=== PATIENT | male | born 1945 | race Caucasian/White ===

== ENCOUNTER → 2017-03-20 | Outpatient (CLI) | payer MEDICARE ==
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
== END | disposition home or self-care (01) ==
LOC: RADCTMAIN 07:52
PROVIDERS: ATTEND Family Medicine
DX: M99.71 Connective tissue and disc stenosis of intervertebral foramina of cervical region (principal); M47.812 Spondylosis without myelopathy or radiculopathy, cervical region; M47.814 Spondylosis without myelopathy or radiculopathy, thoracic region; M81.0 Age-related osteoporosis without current pathological fracture; M43.8X4 Other specified deforming dorsopathies, thoracic region
CPT/HCPCS: 72125; 72128

== ENCOUNTER → 2017-05-13 | Outpatient (CLI) | payer MEDICARE ==
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
== END | disposition home or self-care (01) ==
LOC: RADBDWWP 09:05
PROVIDERS: ATTEND Family Medicine
DX: M85.80 Other specified disorders of bone density and structure, unspecified site (principal); T07.XXXA Unspecified multiple injuries, initial encounter
CPT/HCPCS: 77080

== ENCOUNTER → 2021-10-06 | Outpatient (CLI) | payer MEDICARE ==
--- NOTE | 2021-10-08 14:35 | CT ---
EXAMINATION TYPE: CT pelvis wo con DATE OF EXAM: 10/06/2021 COMPARISON: HISTORY: 76-year-old male N4 0.1, Benign prostatic hyperplasia TECHNIQUE: Contiguous axial scanning of the pelvis without IV contrast. Coronal and sagittal reconstr uctions performed. CT DLP: 395 mGycm Automated exposure control for dose reduction was used. FINDINGS: Small fatty umbilical hernia measuring 2.0 cm wide. Mild prostatic calcifications visualized infraren al abdominal aorta and common iliac arteries. Ectatic distal left common iliac artery up to 1.9 cm. Partially visualized 4.9 cm cyst lower pole left kidney. The breathing motion artifact. Redundant mid to distal sigmoid colon. No retroperitoneal or pelvic lymphadenopathy is identified. Numerous pelvic phleboliths. Numerous clustered layering calculi within the right side of the bladder lumen, aggregate dimension up to 3.2 cm wide. There is severe prostatic enlargement up to 7.9 x 7.1 cm. This enlargement is asymmetric superiorly e xtending towards the left posterior bladder base. A few additional left-sided intraluminal dependent bladder calculi are present measuring up to 6 mm. Mild circumferential bladder wall thickening. Bones: Moderate degenerative change of both hips. At least mild degenerative change at the SI joints. Baastrup's disease with hypertrophic facet arthropathy and moderate to advanced degenerative disc dis ease visualized lower lumbar spine. Trace grade 1 retrolisthesis L4-L5. IMPRESSION: 1. SEVERE PROSTATIC ENLARGEMENT MEASURING UP TO 7.9 X 7.1 CM. SUPERIORLY, THIS ENLARGEMENT IS ASYMMET RON TOWARDS THE LEFT IMPRESSING MORE SO ON TO THE LEFT SIDE OF THE BLADDER BASE. 2. NUMEROUS DEPENDENT, INTRALUMINAL BLADDER CALCULI. LARGEST SINGLE CALCULUS MEASURING UP TO 6 MM. 3. RECOMMEND FURTHER PSA EVALUATION. ULTRASOUND EVALUATION CLINICALLY INDICATED. 3. MILD CIRCUMFERENTIAL BLADDER WALL THICKENING LIKELY CHRONIC BLADDER WALL HYPERTROPHY. 4. NO SUSPICIOUS RETROPERITONEAL OR PELVIC LYMPHADENOPATHY IDENTIFIED.
== END | disposition home or self-care (01) ==
LOC: RADCTMAIN 13:16
PROVIDERS: ATTEND Urology
DX: N40.0 Benign prostatic hyperplasia without lower urinary tract symptoms (principal); N21.0 Calculus in bladder; N32.89 Other specified disorders of bladder
CPT/HCPCS: 72192

== ENCOUNTER → 2021-12-13 | Outpatient (CLI) | payer MEDICARE ==
[2021-12-13 14:45] LABS: Basophils # (A) 0 X 10*3/uL (0.00-0.10); Basophils % (A) 0 %; Eosinophils # (A) 0 X 10*3/uL (0.04-0.35); Eosinophils % (A) 0 %; HCT 45.8 % (39.6-50.0); HGB 15.1 g/dL (13.0-17.0); Immature Grans, Automated 0.4 %; Lymphocytes # (A) 1.45 X 10*3/uL (0.90-5.00); Lymphocytes % (A) 25.7 %; MCH 29.9 pg (27.0-32.0); MCV 90.7 fL (80.0-97.0); Mean Platelet Volume 10.5 fL (9.5-12.2); Monocytes # (A) 1.22 X 10*3/uL (0.20-1.00); Monocytes % (A) 21.6 %; NRBC Per 100 WBC 0 /100 WBCS (0.0-0.0); Neutrophils # (A) 2.95 X 10*3/uL (1.80-7.70); Neutrophils % (A) 52.3 %; Platelet Count 166 X 10*3/uL (140-440); RBC 5.05 X 10*6/uL (4.40-5.60); RDW 12.9 % (11.5-14.5); WBC 5.64 X 10*3/uL (4.50-10.00)
[2021-12-13 15:39] LABS: African American GFR (CKD) 83.8 (60.0-200.0); Anion Gap 10.7 mmol/L (10.00-18.00); BUN/Creat Ratio 21.8 Ratio (12.00-20.00); Blood Urea Nitrogen 21.8 mg/dL (9.0-27.0); Calcium 9.5 mg/dL (8.7-10.3); Carbon Dioxide 27.3 mmol/L (20.0-27.5); Non-African American GFR(CKD) 72.3 (60.0-200.0); Potassium 4.9 mmol/L (3.5-5.5)
[2021-12-13 18:08] LABS: Appearance,Urine Cloudy (Clear); Bilirubin,Urine Negative (Negative); Blood,Urine Moderate (Negative); Color,Urine Yellow (Yellow); Ketones,Urine Trace mg/dL (Negative); Nitrite,Urine Positive (Negative); PH, Urine 6.5 (5.0-8.0); Specific Gravity,Urine 1.026 (1.001-1.030); Urobilinogen,Urine 0.2 (0.2,1.0)
[2021-12-13 19:08] LABS: Bacteria,Urine 3+ /HPF (None Seen); Calcium Oxalate Crystals,Urine Present /LPF (None Seen); Mucus,Urine Present /LPF (None Seen)
== END | disposition home or self-care (01) ==
LOC: LABPAT 09:15
PROVIDERS: ATTEND Urology
DX: Z01.812 Encounter for preprocedural laboratory examination (principal); N40.1 Benign prostatic hyperplasia with lower urinary tract symptoms
CPT/HCPCS: 80048; 81001; 85025; 86850; 86900; 86901; 87086; 93005

== ENCOUNTER 2021-12-22 05:53 | Inpatient (IN) | payer MEDICARE ==
[~2021-12-22 05:53] MED LIST: HEPARIN SODIUM,PORCINE/PF 5,000 UNIT/0.5 ML SYRINGE SQ PRN
[2021-12-22] MEDS ORDERED: LIDOCAINE 1% (10MG/ML) FOR IV START INTRADERMA PRN (06:00)
[2021-12-22] MEDS ORDERED: ONDANSETRON 4 MG/2 ML VIAL IVP ONE (06:00)
[2021-12-22] MEDS ORDERED: HYDROmorphone 0.5 MG/0.5 ML SYRINGE IVP PRN (06:00)
[2021-12-22] MEDS: LACTATED RINGERS 1,000 ML IV SCH (07:10)
[2021-12-22] MEDS ORDERED: MIDAZOLAM 2 MG/2 ML VIAL IV ONE (07:15)
[2021-12-22] MEDS ORDERED: ROPIVACAINE 5 MG/ML 30 ML VIAL ONE (07:30)
[2021-12-22] MEDS ORDERED: fentaNYL (PF) 50 MCG/ML 2 ML AMP ONE (07:30)
[2021-12-22] MEDS ORDERED: ePHEDrine 50 MG/ML 1 ML VIAL ONE (07:30)
[2021-12-22] MEDS ORDERED: SUCCINYLCHOLINE CHLORIDE 200 MG/10 ML VIAL IV ONE (07:30)
[2021-12-22] MEDS ORDERED: PROPOFOL 10 MG/ML 20 ML VIAL IV ONE (07:30)
[2021-12-22] MEDS ORDERED: HYDROmorphone (PF) 1 MG/ML ONE (07:30)
[2021-12-22] MEDS ORDERED: NEOSTIGMINE 1 MG/ML 10 ML VIAL ONE (07:30)
[2021-12-22] MEDS ORDERED: LIDOCAINE 2% INJ 20 MG/ML (2 ML VIAL) ONE (07:30)
[2021-12-22] MEDS ORDERED: GLYCOPYRROLATE 0.2 MG/ML 2 ML VIAL ONE (07:30)
[2021-12-22] MEDS ORDERED: SODIUM CHLORIDE 0.9% (PF) 10 ML VIAL ONE (07:30)
[2021-12-22] MEDS ORDERED: ROCURONIUM 10 MG/ML (5 ML VIAL) IV ONE (07:30)
--- NOTE | 2021-12-22 07:47 | P.HPIHPCON ---
History of Present Illness H&P Date: 12/21/21 Chief Complaint: BPH, urinary retention this is an 80-year-old male with history of urinary retention, has failed multiple trial of void. He underwent a transrectal rectal ultrasound showed evidence of a 116 gram prostate. Discussed with him given the prostate size the option of a robotic simple versus HoLEP risk and benefit of each approach were discussed in detail. He agreed to proceed with a robotic simple prostatectomy. Discussed the risk which includes but not limited to bleeding, infection, urinary incontinence, urethral stricture, erectile dysfunction, retrograde ejaculation. Persistent retention. Discussed also the risk of injury to nearby organs. Discussed also the risk of anesthesia, discussed given his age is at high risk of complication. He understood all the risk and agreed to proceed with a robotic simple prostatectomy Consent for Procedure: I have explained the operation/procedure to the patient, including the risks, benefits, side effects, alternative therapies (including not receiving the proposed treatment or service), the likelihood of the patient achieving his/her goals, and potential recuperation problems for the procedure/sedation/analgesia, as well as any blood products, if indicated. I also explained to the patient the risks, benefits and side effects of the alternatives, as well as the risks related to not receiving the proposed procedure, care, treatment, or services. Past Medical History Past Medical History: Osteoarthritis (OA), Prostate Disorder Additional Past Medical History / Comment(s): URINARY FREQUENCY. glaucoma, cold sores History of Any Multi-Drug Resistant Organisms: None Reported Past Surgical History: Orthopedic Surgery Additional Past Surgical History / Comment(s): BILATERAL CATARACT REMOVAL/LENS IMPLANT. sinus polyp removed. ORIF ANKLE, HARDWARE REMOVED. Past Anesthesia/Blood Transfusion Reactions: No Reported Reaction Past Psychological History: No Psychological Hx Reported Smoking Status: Former smoker Past Alcohol Use History: Rare Additional Past Alcohol Use History / Comment(s): QUIT OVER 35 YR. Past Drug Use History: None Reported - Past Family History Mother Family Medical History: No Reported History Medications and Allergies Home Medications Medication Instructions Recorded Confirmed Type Latanoprost Ophth [Xalatan 0.005%] 1 drops BOTH EYES BID 09/11/15 12/19/21 History Aspirin 325 mg PO Q6H PRN 12/19/21 12/19/21 History Brimonidine Tartrate [Lumify] 1 drop BOTH EYES BID 12/19/21 12/19/21 History Cholecalciferol [Vitamin D3 (25 1 tab PO DAILY 12/19/21 12/19/21 History Mcg = 1000 Iu)] Dorzolamide HCl/Pf [Dorzolamide 2% 1 drop BOTH EYES BID 12/19/21 12/19/21 History Eye Drop] [place]-3/Dha/Epa/Fish Oil [Fish Oil 1 cap PO DAILY 12/19/21 12/19/21 History 1,000 mg Softgel] Cephalexin [Keflex] 500 mg PO Q12HR 12/22/21 12/22/21 History Allergies Allergy/AdvReac Type Severity Reaction Status Date / Time STEROIDS AdvReac Unknown. Uncoded 12/22/21 06:35 LIMIT USE, PATIENT HAS GLAUCOMA Assessment and Plan Assessment: OR for robotic simple prostatectomy
--- NOTE | 2021-12-22 08:17 | P.ANPRN ---
Procedure Note - Anesthesia - Nerve Block Performed Bilateral Erector Spinae Time Out Performed: Yes (07:15) Date of Procedure: 12/22/21 Procedure Start Time: Procedure Stop Time: Location of Patient: PreOp Indication: Acute Post-Operative Pain, Requested by Surgeon (Dr New) Sedation Type: Sedate with meaningful contact maintained Preparation: Sterile Prep Position: Prone Catheter: None Needle Types: Pajunk Needle Gauge: 21 Ultrasound used to visualize needle placement: Yes Ultrasound used to observe medication spread: Yes Injectate: 0.5% Ropivacaine (see comment for volume) (15cc +5cc PF Normal saline each side) Blood Aspirated: No Pain Paresthesia on Injection Noted: No Resistance on Injection: Normal Image Stored and Saved: Yes Events: Uneventful and Well Tolerated
[2021-12-22] MEDS ORDERED: BUPIVACAINE (PF) 0.25% 30 ML VIAL SQ ONE ×2 (08:37)
[2021-12-22] MEDS: KETOROLAC 15 MG/ML 1 ML VIAL IVP SCH ×2 (13:34→17:20)
[2021-12-22] MEDS: D5-0.45% NACL WITH KCL 20MEQ/L 1,000 ML IV SCH ×2 (13:35→21:44)
--- NOTE | 2021-12-22 13:41 | P.OP ---
Date of Procedure: 12/22/21 Preoperative Diagnosis: BPH, urinary retention Postoperative Diagnosis: Same Procedure(s) Performed: Robotic simple prostatectomy, removal of bladder stones Implants: None Anesthesia: BARBA Surgeon: Erickson New Table Maker #1: Cindy Izaguirre Estimated Blood Loss (ml): 150 Pathology: other (Prostate adenoma) Condition: stable Disposition: PACU Indications for Procedure: this is an 80-year-old male with history of urinary retention, has failed multiple trial of void. He underwent a transrectal rectal ultrasound showed evidence of a 116 gram prostate. Discussed with him given the prostate size the option of a robotic simple versus HoLEP risk and benefit of each approach were discussed in detail. He agreed to proceed with a robotic simple prostatectomy. Discussed the risk which includes but not limited to bleeding, infection, urinary incontinence, urethral stricture, erectile dysfunction, retrograde ejaculation. Persistent retention. Discussed also the risk of injury to nearby organs. Discussed also the risk of anesthesia, discussed given his age is at high risk of complication. He understood all the risk and agreed to proceed with a robotic simple prostatectomy Description of Procedure: After preoperative antibiotics were started, the patient was taken to the operating room. Anesthesia was induced and the patient was placed in a supine position with adequate padding of the pressure points, shoulders, back, legs and arms. He was then prepped and draped in the standard fashion. A critical pause was performed using two patient identifiers. A 16F sigala catheter was placed to gravity drainage. A pneumoperitoneum was obtained using a Veress needle, after pneumoperitoneum was obtained a 8 mm camera port was placed. Under direct vision a 8mm robotic ports was placed lateral to each rectus slightly below the camera port. The left iliac fossa 8mm port was placed. The right economist research assistant right iliac fossa 12mm port and right paramedian 5mm port were placed. Of note the transverse colon was adherent in the hernia sac, and was adherent to the anterior abdominal wall. The adhesion was taken down sharply using laparoscopic scissor. After the patient was placed in the trendelenberg position, the robot was then docked to the 8mm robotic ports and then each robotic arm and tower was checked in relation to the patient's legs and hands to avoid inadvertent compression. The peritoneal cavity was inspected, there appeared to be a small serosal tear that measured less than 1 cm along the transverse colon. it was at the site of where the adhesions were taken down. There was no evidence of mucosal tear, or gross spillage. The serosal tear was repaired using 3-0 Vicryl in interrupted fashion Adhesions were taken down along the left lower quadrant An inverted U-shaped incision began laterally to the left medial umbilical ligament and extended high across the midline to the right umbilical ligament. The limbs of the "U" extended to the level of the vasa on both sides. We next developed the preperitoneal space and the space of Retzius. Cautery was used to dissected the bladder away from the prostate, the incision was made in close proximity to the prostate, and incision was extended laterally and at this point the plane between the adenoma and the surgical capsule is identified. Both ureteral orifices were identified and neither was injured d uring the dissection. At this time more than 20 bladder stones were encountered, and all were removed and sent for analysis. The adenoma was dissected off of the capsule by combination of blunt dissection and minimum cautery. dissection was initially started along the anterior surface and posterior surface of adenoma, and this was carried laterally. The dissection was carried to the apex, at this point the urethral-prostatic junction was visualized and the prostate was transected at the junction. Prostate adenoma was placed in an endocatch bag . A 9and 9 inch 3-0 V-Lock suture was used to anastomose the urethra and bladder, starting at the 6:00 posterior position. Mucosa was secured in every stitch, to ensure a mucosa to mucosa anastomosis. The stitch was regularly cinched and the anastomosis tightened. . The 18 Fr Sigala catheter was advanced, the bladder filled, and the anastomosis was tested. Anastomsis was watertight at 150 mL. balloon was inflated to 10 mL The robot was undocked. specimen was extracted from the supraumbilical incision. The periumbilical fascia was closed with 1-0-PDS suture in figure of 8 fashion. All ports were closed with a subcuticular 4-0 monocryl and Dermabond. Sponge, instrument, and needle counts were correct at the end of the case x2. The patient tolerated the surgery well and without complication. He awoke without difficulty and was taken to the recovery room in stable condition
[2021-12-22] MEDS: DORZOLAMIDE HCL 2% DROPS 10 ML BTL BOTH EYES SCH ×2 (13:49→21:00)
[2021-12-22] MEDS: BRIMONIDINE TARTRATE 0.2% DROPS 5 ML BTL BOTH EYES SCH ×2 (13:49→21:00)
[2021-12-22] MEDS: HEPARIN SODIUM,PORCINE/PF 5,000 UNIT/0.5 ML SYRINGE SQ SCH (17:20)
[2021-12-22 20:24] VITALS: RESP 18
[2021-12-22] MEDS ORDERED: LATANOPROST 0.005% OPHTH DROPS 2.5 ML BTL BOTH EYES SCH (21:00)
[2021-12-23] MEDS: HEPARIN SODIUM,PORCINE/PF 5,000 UNIT/0.5 ML SYRINGE SQ SCH ×2 (00:13→08:51)
[2021-12-23] MEDS: KETOROLAC 15 MG/ML 1 ML VIAL IVP SCH ×2 (00:13→05:49)
[2021-12-23 04:41] VITALS: TEMP 98.5
[2021-12-23] MEDS: D5-0.45% NACL WITH KCL 20MEQ/L 1,000 ML IV SCH ×2 (05:25→05:50)
[2021-12-23 08:58] VITALS: BP 108/67; PULSE 62
[2021-12-23] MEDS: BRIMONIDINE TARTRATE 0.2% DROPS 5 ML BTL BOTH EYES SCH (09:01)
[2021-12-23] MEDS: DORZOLAMIDE HCL 2% DROPS 10 ML BTL BOTH EYES SCH (09:02)
--- NOTE | 2021-12-23 10:15 | P.DS ---
Providers Date of admission: 12/22/21 05:53 Attending physician: Erickson New MD Primary care physician: Stated None Hospital Course: This is 76-year-old male with history of urinary retention. Underwent robotic simple prostatectomy on December 22. Please see op note dated December 22 for surgery detail. Patient did well in the postoperative period he was discharged home on postop day #1. At time of discharge was tolerating a diet, ambulating, pain was controlled Plan - Discharge Summary Discharge Rx Participant: Yes New Discharge Prescriptions: No Action Latanoprost Ophth [Xalatan 0.005%] 1 drops BOTH EYES HS Brimonidine Tartrate [Lumify] 1 drop BOTH EYES BID [place]-3/Dha/Epa/Fish Oil [Fish Oil 1,000 mg Softgel] 1 cap PO DAILY Aspirin 325 mg PO Q6H PRN PRN Reason: Pain Dorzolamide HCl/Pf [Dorzolamide 2% Eye Drop] 1 drop BOTH EYES BID Cholecalciferol [Vitamin D3 (25 Mcg = 1000 Iu)] 1 tab PO DAILY Cephalexin [Keflex] 500 mg PO Q12HR Discharge Medication List Latanoprost Ophth [Xalatan 0.005%] 1 drops BOTH EYES HS 09/11/15 [History] Aspirin 325 mg PO Q6H PRN 12/19/21 [History] Brimonidine Tartrate [Lumify] 1 drop BOTH EYES BID 12/19/21 [History] Cholecalciferol [Vitamin D3 (25 Mcg = 1000 Iu)] 1 tab PO DAILY 12/19/21 [History] Dorzolamide HCl/Pf [Dorzolamide 2% Eye Drop] 1 drop BOTH EYES BID 12/19/21 [History] [place]-3/Dha/Epa/Fish Oil [Fish Oil 1,000 mg Softgel] 1 cap PO DAILY 12/19/21 [History] Cephalexin [Keflex] 500 mg PO Q12HR 12/22/21 [History]
== END 2021-12-23 13:20 | disposition home or self-care (01) | DRG 708 ==
LOC: 2ORMAIN 05:53 → 5NMEDONC 11:41
PROVIDERS: ADMIT Urology; ATTEND Urology
PROC: 0VT04ZZ Resection of Prostate, Percutaneous Endoscopic Approach (ICD-10-PCS; principal; 2021-12-22 07:30)
PROC: 8E0W4CZ Robotic Assisted Procedure of Trunk Region, Percutaneous Endoscopic Approach (ICD-10-PCS; principal; 2021-12-22 07:30)
PROC: 0TCB4ZZ Extirpation of Matter from Bladder, Percutaneous Endoscopic Approach (ICD-10-PCS; principal; 2021-12-22 07:30)
DX: N40.1 Benign prostatic hyperplasia with lower urinary tract symptoms (principal); N21.0 Calculus in bladder; R33.8 Other retention of urine; Z60.2 Problems related to living alone; Z79.82 Long term (current) use of aspirin; Z79.899 Other long term (current) drug therapy
CPT/HCPCS: 64999; 82365; 86850; 86900; 86901

== ENCOUNTER → 2023-10-08 | Outpatient (CLI) | payer MEDICARE ==
--- NOTE | 2023-10-08 09:35 | XR ---
EXAMINATION TYPE: XR KUB DATE OF EXAM: 10/08/2023 COMPARISON: NONE HISTORY: Renal calculus TECHNIQUE: One view abdominal series FINDINGS: The osseous structures are intact. The bowel gas pattern is nonspecific. Large calcification in the left upper quadrant measuring 2.8 cm with adjacent 8 mm calcification. There are calcifications in th e pelvis. Arthropathy of the hips and degenerative changes spine. Large retained stool burden correla te for constipation. Scoliosis with osteopenia and degenerative change of the spine. IMPRESSION: 1. Large left renal calculus measuring 2.8 cm.
== END | disposition home or self-care (01) ==
LOC: RADXRMAIN 09:14
PROVIDERS: ATTEND Urology
DX: N20.0 Calculus of kidney (principal)
CPT/HCPCS: 74018

== ENCOUNTER → 2023-10-23 | Outpatient (CLI) | payer MEDICARE ==
--- NOTE | 2023-10-23 15:56 | CT ---
EXAMINATION TYPE: CT abdomen pelvis wo con CT DLP: 952 mGycm, Automated exposure control for dose reduction was used. DATE OF EXAM: 10/23/2023 2:27 PM COMPARISON: 10/16/2021 CLINICAL INDICATION:Male, 78 years old with history of N20.0 CALCULUS OF KIDNEY; hematuria TECHNIQUE: Axial CT abdomen pelvis wo con;Sagittal and coronal reformats were created on a separate workstation. Contrast used: mL of , (none if empty) Oral contrast used: without Oral Contrast (none if empty) FINDINGS: LOWER CHEST: Unremarkable ABDOMEN LIVER: Unremarkable GALLBLADDER AND BILE DUCTS: Unremarkable. PANCREAS: Unremarkable. SPLEEN: Unremarkable. ADRENAL GLANDS: Right lipid rich adrenal adenoma measuring 22 mm. No left adrenal nodule. KIDNEYS AND URETERS: Left staghorn calculus measuring up to 27 x 14 mm. No right renal calculi. Multi ple left peripelvic renal cyst. Nonobstructing lithiasis in the left. Left simple appearing renal cys ts. PELVIS BLADDER: No bladder stones. Partially distended bladder. REPRODUCTIVE: Unremarkable. ABDOMEN & PELVIS STOMACH AND BOWEL: No evidence of bowel obstruction. PERITONEUM/RETROPERITONEUM: No evidence of pneumoperitoneum or free fluid. VASCULATURE: Mild atherosclerotic calcifications are present throughout the abdominal aorta and its b ranches. No evidence of aortic aneurysm. MUSCULOSKELETAL: No acute osseous abnormalities. Moderate disc degeneration changes are present throu ghout the thoracolumbar spine. Degeneration changes of the hips with osteophyte formation and joint s pace narrowing compression deformity of the L1 vertebral body similar to 2017. 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 LYMPH NODES: No gross evidence for lymphadenopathy. SOFT TISSUE/ABDOMINAL WALL: Right inguinal hernia containing the appendix tip. Left inguinal hernia c ontaining loop of colon IMPRESSION: 1. Left staghorn calculus without evidence for obstructive uropathy. No bladder calculus. 2. No evidence for acute process 3. Right inguinal Amyand's hernia 4. Left inguinal hernia containing wall of large bowel.
== END | disposition home or self-care (01) ==
LOC: RADCTMAIN 14:07
PROVIDERS: ATTEND Urology
DX: K40.20 Bilateral inguinal hernia, without obstruction or gangrene, not specified as recurrent (principal); N20.0 Calculus of kidney
CPT/HCPCS: 74176

== ENCOUNTER → 2023-11-12 | Outpatient (CLI) | payer MEDICARE ==
[2023-11-12 10:36] LABS: Appearance,Urine Cloudy (Clear); Bacteria,Urine Occasional /hpf; Bilirubin,Urine Negative (Negative); Blood,Urine Small (Negative); Color,Urine Light Yellow; Glucose,Urine (UA) Negative (Negative); Ketones,Urine Negative (Negative); Leukocyte Esterase,Urine Large (Negative); Mucus,Urine Rare /hpf; Nitrite,Urine Negative (Negative); PH, Urine 5.5 (5.0-8.0); Protein,Urine Trace (Negative); RBC,Urine 12 /hpf (0-5); Specific Gravity,Urine 1.018 (1.001-1.035); Urobilinogen,Urine <2.0 mg/dL (<2.0); WBC,Urine >182 /hpf (0-5)
[2023-11-12 15:56] LABS: Basophils # (A) 0.03 X 10*3/uL (0.00-0.10); Basophils % (A) 0.4 %; Eosinophils # (A) 0.38 X 10*3/uL (0.04-0.35); HCT 46.7 % (39.6-50.0); HGB 15.1 g/dL (13.0-17.0); Lymphocytes # (A) 3.88 X 10*3/uL (0.90-5.00); Lymphocytes % (A) 51.3 %; MCH 30.1 pg (27.0-32.0); MCHC 32.3 g/dL (32.0-37.0); Mean Platelet Volume 10.7 FL (9.5-12.2); Monocytes # (A) 0.64 X 10*3/uL (0.20-1.00); Monocytes % (A) 8.5 %; NRBC Per 100 WBC 0 X 10*3/uL (0.00-0.01); Neutrophils # (A) 2.61 X 10*3/uL (1.80-7.70); Neutrophils % (A) 34.5 %; Platelet Count 213 X 10*3/uL (140-440); RBC 5.02 X 10*6/uL (4.40-5.60); RDW 12.6 % (11.5-14.5); WBC 7.56 X 10*3/uL (4.50-10.00)
[2023-11-12 16:06] LABS: ALT 19 U/L (10-49); AST 23 U/L (14-35); Albumin 4.4 g/dL (3.8-4.9); Albumin/Globulin Ratio 1.76 Ratio (1.60-3.17); Alkaline Phosphatase 90 U/L (41-126); BUN/Creat Ratio 22.78 Ratio (12.00-20.00); Blood Urea Nitrogen 20.5 mg/dL (9.0-27.0); Calcium 9.5 mg/dL (8.7-10.3); Carbon Dioxide 26.2 mmol/L (21.6-31.8); Chloride 105 mmol/L (96-109); Globulin 2.5 g/dL (1.6-3.3); Glucose 131 mg/dL (70-110); Potassium 4.4 mmol/L (3.5-5.5); Sodium 141 mmol/L (135-145); Total Bilirubin 0.7 mg/dL (0.3-1.2); Total Protein 6.9 g/dL (6.2-8.2)
== END | disposition home or self-care (01) ==
LOC: LABPAT 09:42
PROVIDERS: ATTEND Urology
DX: Z01.812 Encounter for preprocedural laboratory examination (principal); N20.0 Calculus of kidney
CPT/HCPCS: 80053; 81001; 85025; 87086

== ENCOUNTER 2023-11-20 06:32 | Day surgery (SDC) | payer MEDICARE ==
--- NOTE | 2023-11-19 18:35 | P.GSHP ---
History of Present Illness H&P Date: 11/19/23 78yo male with a history of stones presents with left flank pain and hematuria. He underwent a ct scan of the abdomen that identified a partial staghorn calculous left [>2cm]. He was given treatment options. He comes for a left pcnl. the risks and complications have been discussed. He comes for a left pcnl. - Constitutional Constitutional: Denies chills, Denies fever - EENT Eyes: denies blurred vision, denies pain Ears, nose, mouth and throat: Denies headache, Denies sore throat - Cardiovascular Cardiovascular: Denies chest pain, Denies shortness of breath - Respiratory Respiratory: Denies cough, Denies 7 - Gastrointestinal Gastrointestinal: Denies abdominal pain, Denies diarrhea, Denies nausea, Denies vomiting - Genitourinary (Female) Genitourinary: Denies dysuria, Denies hematuria - Genitourinary (Male) Genitourinary: Denies dysuria, Denies hematuria - Musculoskeletal Musculoskeletal: Denies myalgias - Integumentary Integumentary: Denies pruritus, Denies rash - Neurological Neurological: Denies numbness, Denies weakness - Psychiatric Psychiatric: Denies anxiety, Denies depression - Endocrine Endocrine: Denies fatigue, Denies weight change Past Medical History Past Medical History: Cancer, Hypertension Additional Past Medical History / Comment(s): glaucoma, cold sores, kidney stones, skin cancers removed, has had C3 or 4 vertabrae burst then C2 fx and had to wear braces History of Any Multi-Drug Resistant Organisms: None Reported Past Surgical History: Orthopedic Surgery Additional Past Surgical History / Comment(s): sinus polyp removed, fx ankle repair hardware placed and then removed, Past Anesthesia/Blood Transfusion Reactions: No Reported Reaction Smoking Status: Former smoker - Past Family History Mother Family Medical History: No Reported History Medications and Allergies Home Medications Medication Instructions Recorded Confirmed Type Latanoprost Ophth [Xalatan 0.005%] 1 drops BOTH EYES HS 09/11/15 11/15/23 History Brimonidine Tartrate [Lumify] 1 drop BOTH EYES BID 12/19/21 11/15/23 History Cholecalciferol [Vitamin D3 (25 1 tab PO DAILY 12/19/21 11/15/23 History Mcg = 1000 Iu)] Dorzolamide HCl/Pf [Dorzolamide 2% 1 drop BOTH EYES BID 12/19/21 11/15/23 History Eye Drop] [place]-3/Dha/Epa/Fish Oil [Fish Oil 1 cap PO DAILY 12/19/21 11/15/23 History 1,000 mg Softgel] Allergies Allergy/AdvReac Type Severity Reaction Status Date / Time STEROIDS AdvReac Unknown. Uncoded 11/15/23 13:57 LIMIT USE, PATIENT HAS GLAUCOMA Surgical - Exam - General well developed, well nourished, no distress - Eyes normal ocular movement, no icteric - ENT no hearing loss, no congestion - Neck no masses, trachea midline - Respiratory normal respiratory effort, clear to auscultation - Abdomen Abdomen: soft, non tender, no guarding, no rigid, no rebound - Genitourinary absent prostate - Integumentary no rash, no abnormal pigmentation - Neurologic no disoriented, no combative - Psychiatric oriented to time, oriented to person, oriented to place, speech is normal, memory intact Results - Imaging Abdominal x-ray: report reviewed, image reviewed CT scan - abdomen: report reviewed, image reviewed CT scan - pelvis: report reviewed, image reviewed Assessment and Plan Assessment: Impression: left partial staghorn calculous[>2cm]. Plan: left pcnl
[~2023-11-20 06:32] MED LIST changes: -HEPARIN SODIUM,PORCINE/PF 5,000 UNIT/0.5 ML SYRINGE SQ PRN; +LIDOCAINE 1% (10MG/ML) FOR IV START INTRADERMA PRN
[2023-11-20] MEDS: IV FLUID CONTINUATION 1,000 ML IV ONE ×2 (06:56→09:45)
[2023-11-20] MEDS ORDERED: MIDAZOLAM 2 MG/2 ML VIAL IV PRN (07:00)
[2023-11-20] MEDS ORDERED: HYDROmorphone 0.5 MG/0.5 ML SYRINGE IVP PRN (07:00)
[2023-11-20] MEDS: LACTATED RINGERS 1,000 ML IV SCH (07:34)
[2023-11-20] MEDS: ONDANSETRON 4 MG/2 ML VIAL IVP ONE (07:34)
--- NOTE | 2023-11-20 07:48 | XR ---
EXAMINATION TYPE: XR KUB DATE OF EXAM: 11/20/2023 HISTORY: Pain Comparison: 10/08/2023 Single KUB is submitted for interpretation. Findings: Right renal calculi: None Visualized. Right ureteral calculi: None Visualized. Left renal calculi: Large calculus lower pole left kidney measuring 2.9 x 1.9 cm Left ureteral calculi: None Visualized. Pelvic calcifications: Multiple Bowel gas pattern is unremarkable. No free air. No mass effects. IMPRESSION: 1. Large calculus lower pole left kidney measuring 2.9 x 1.9 cm
[2023-11-20] MEDS ORDERED: MIDAZOLAM 2 MG/2 ML VIAL ONE (08:54)
[2023-11-20] MEDS ORDERED: SUCCINYLCHOLINE CHLORIDE 200 MG/10 ML VIAL IV ONE (08:54)
[2023-11-20] MEDS ORDERED: ROCURONIUM 10 MG/ML (5 ML VIAL) IV ONE (08:54)
[2023-11-20] MEDS ORDERED: GLYCOPYRROLATE 0.2 MG/ML 2 ML VIAL ONE (08:54)
[2023-11-20] MEDS ORDERED: LIDOCAINE 1% INJ 10MG/ML (20 ML MDV) ONE (08:54)
[2023-11-20] MEDS ORDERED: fentaNYL (PF) 50 MCG/ML 2 ML AMP ONE (08:54)
[2023-11-20] MEDS ORDERED: PHENYLEPHRINE-0.9% NACL SYG 1,000 MCG/10 ML SYRINGE ONE (08:54)
[2023-11-20] MEDS ORDERED: NEOSTIGMINE 1 MG/ML 10 ML VIAL ONE (08:54)
[2023-11-20] MEDS ORDERED: PROPOFOL 10 MG/ML 20 ML VIAL IV ONE (08:54)
[2023-11-20] MEDS ORDERED: HYDROmorphone (PF) 1 MG/ML ONE (08:54)
[2023-11-20] MEDS: IOPAMIDOL-370 50ML BTL IRRIGATION ONE (09:35)
[2023-11-20] MEDS ORDERED: ACETAMINOPHEN TAB 325 MG TAB PO PRN (10:28)
[2023-11-20] MEDS ORDERED: NALOXONE 0.4 MG/ML 1 ML VIAL IV PRN (10:28)
[2023-11-20] MEDS ORDERED: MAG HYDROX/AL HYDROX/SIMETH 30 ML CUP PO PRN (10:28)
--- NOTE | 2023-11-20 10:31 | FL ---
EXAMINATION TYPE: FL Perc Nephrostomy New Access DATE OF EXAM: 11/20/2023 COMPARISON: NONE HISTORY: Intraoperative procedure TECHNIQUE: Fluoroscopy. FINDINGS: Fluoroscopic guidance was provided during procedure.. A total of 1 minute and 18 seconds of fluoroscopic time was utilized during the procedure and 3 spot images was acquired. Total dose ar ea product (DAP) in uGy*m?, mGy*cm? (or similar): 24.022. IMPRESSION: As Above.
--- NOTE | 2023-11-20 10:32 | P.OP ---
Date of Procedure: 11/20/23 Preoperative Diagnosis: Left renal stone large ( greater than 2 cm) Postoperative Diagnosis: same Procedure(s) Performed: cystoscopy, placement of occluding balloon catheter left, percutaneous nephrostomy, percutaneous nephrostolithotomy with ultrasound, placement of 12- Italian J nephrostomy Anesthesia: GENNARO Surgeon: Maik Montero Estimated Blood Loss (ml): 300 Pathology: other (stone) Condition: stable Disposition: PACU Indications for Procedure: patient is 78. He has had pain and blood. He has a greater than 2 cm left lower pole stone. He comes for percutaneous nephrostolithotomy Description of Procedure: patient brought to the operating suite. Given a general anesthetic. On the transport gurney cystoscopy is performed after sterile prep and drape. Cystoscopy identifies a previous TURP. The left ureteral orifice is identified and intubated with a 5-Italian occluding balloon catheter passed up into the kidney kidney. It is secured to a 16-Italian coud-tip catheter Percutaneous access to the left lower pole calyx is performed and dictated separately. A 30-Italian nephrostomy tract sheath was placed into the kidney. The stone is seen endoscopically after clot is removed. With the ultrasound probe the stone is fractured suctioned out or grasped. Then the procedure there is no obvious stone. Fluoroscopy confirms that. A 12-Italian J nephrostomy tube was placed over the working wire. It is secured the skin with 2-0 silk. The patient is awake and returned recovery in good condition. Blood loss is approximately 200 mL.
--- NOTE | 2023-11-20 10:35 | P.PCN ---
Date of Procedure: 11/20/23 Preoperative Diagnosis: left renal stone, large, greater than 2 cm Postoperative Diagnosis: same Procedure(s) Performed: percutaneous access Anesthesia: GENNARO Surgeon: Maik Montero Indications for Procedure: patient has a greater than 2 cm kidney stone in the left lower pole. He comes for percutaneous nephrostolithotomy I will do percutaneous access Description of Procedure: the patient i as been previously anesthetized. Cystoscopy is performed to place occluding balloon catheter. He's placed in a prone position with care to airways extremities with sterile prep and drape. I outlined the collecting system with air. With a 21-gauge Chiba needle the left lower pole is intubated. The cope mandrel wire is then advanced through the needle into the collecting system. I then removed the Chiba needle and pass a 6-Icelandic dilating catheter over the wire into the collecting system. I removed the cope wire and advance an 035 [place] wire into the collecting system. I then removed the dilating catheter and pass a 6-Icelandic Kumpe catheter to direct the wire down the ureter. This is done successfully. I then advanced the Kumpe catheter over the wire into the ureter. I removed the Lubriglide wire and passed a superstiff wire down the ureter. I then pass the 8-10-Icelandic exchange dilating catheters. The inner catheters removed and a safety wires passed down the ureter. I then pass the nephrostomy tract dilating balloon and dilate the tract to 30-Icelandic and advance the working sheath into the collecting system.
[2023-11-20] MEDS ORDERED: HYDROmorphone PCA 10 MG/50 ML BAG IV PRN (12:00)
[2023-11-20] MEDS: DEXAMETHASONE SOD PHOSPHATE 4 MG/ML 1 ML VIAL IV ONE (12:11)
[2023-11-20] MEDS: ONDANSETRON 4 MG/2 ML VIAL IVP PRN (12:24)
[2023-11-20] MEDS ORDERED: HYDROcodone/APAP 5-325MG 1 EACH TAB PO PRN (12:38)
[2023-11-20] MEDS: DEXTROSE 5%-0.45% NACL 1,000 ML IV SCH (17:46)
[2023-11-20] MEDS: DORZOLAMIDE HCL 2% DROPS 10 ML BTL BOTH EYES SCH (20:15)
[2023-11-20] MEDS: LATANOPROST 0.005% OPHTH DROPS 2.5 ML BTL BOTH EYES SCH (20:15)
[2023-11-20] MEDS ORDERED: BRIMONIDINE TARTRATE BOTH EYES SCH (21:00)
[2023-11-20] MEDS ORDERED: BRIMONIDINE TARTRATE 0.2% BOTH EYES SCH (21:43)
[2023-11-20] MEDS: BRIMONIDINE TARTRATE 0.2% BOTH EYES SCH (21:48)
[2023-11-21] MEDS: KETOROLAC 15 MG/ML 1 ML VIAL IVP PRN (05:41)
--- NOTE | 2023-11-21 07:48 | P.DS ---
Providers Attending physician: Maik Montero Primary care physician: Stated None Hospital Course: The patient was admitted 11/20/23 for a left pcnl. He underwent that without difficulty. He had an uneventful post op period. His pain is under control His vss. He will be discharged home with the n tube. He will fu in the office for n tube removal. His condition is good Patient Condition at Discharge: Good Plan - Discharge Summary Discharge Rx Participant: No New Discharge Prescriptions: No Action Latanoprost Ophth [Xalatan 0.005%] 1 drops BOTH EYES HS Brimonidine Tartrate [Lumify] 1 drop BOTH EYES BID [place]-3/Dha/Epa/Fish Oil [Fish Oil 1,000 mg Softgel] 1 cap PO DAILY Dorzolamide HCl/Pf [Dorzolamide 2% Eye Drop] 1 drop BOTH EYES BID Cholecalciferol [Vitamin D3 (25 Mcg = 1000 Iu)] 1 tab PO DAILY Discharge Medication List Latanoprost Ophth [Xalatan 0.005%] 1 drops BOTH EYES HS 09/11/15 [History] Brimonidine Tartrate [Lumify] 1 drop BOTH EYES BID 12/19/21 [History] Cholecalciferol [Vitamin D3 (25 Mcg = 1000 Iu)] 1 tab PO DAILY 12/19/21 [History] Dorzolamide HCl/Pf [Dorzolamide 2% Eye Drop] 1 drop BOTH EYES BID 12/19/21 [History] [place]-3/Dha/Epa/Fish Oil [Fish Oil 1,000 mg Softgel] 1 cap PO DAILY 12/19/21 [History] Follow up Appointment(s)/Referral(s): Maik Montero MD [STAFF PHYSICIAN] - 11/25/23 (home with nephrostomy tube) Discharge Disposition: HOME SELF-CARE
[2023-11-21] MEDS: SODIUM CHLORIDE 0.9% 500 ML BAG IV STA (11:10)
[2023-11-21 11:36] LABS: Basophils % (A) 0 %; Eosinophils % (A) 0 %; HCT 36.7 % (39.0-53.0); HGB 11.9 gm/dL (13.0-17.5); Lymphocytes # (A) 1.7 k/uL (1.0-4.8); Lymphocytes % (A) 8 %; MCHC 32.4 g/dL (31.0-37.0); MCV 92.6 fL (80.0-100.0); Mean Platelet Volume 8.4; Monocytes # (A) 1.3 k/uL (0-1.0); Monocytes % (A) 6 %; Neutrophils # (A) 19.6 k/uL (1.3-7.7); Neutrophils % (A) 85 %; Platelet Count 151 k/uL (150-450); RBC 3.96 m/uL (4.30-5.90); RDW 12.5 % (11.5-15.5); WBC 22.9 k/uL (3.8-10.6)
[2023-11-21] MEDS: LEVOFLOXACIN 500MG-D5W PMX 500 MG in DEXTROSE/WATER 1 100ML.BAG IVPB SCH (12:26)
[2023-11-21 12:56] LABS: Appearance,Urine Turbid (Clear); Bacteria,Urine Few /hpf; Bilirubin,Urine Negative (Negative); Blood,Urine Large (Negative); Color,Urine Dark Red; Glucose,Urine (UA) Negative (Negative); Ketones,Urine Negative (Negative); Leukocyte Esterase,Urine Large (Negative); Mucus,Urine Few /hpf; Nitrite,Urine Negative (Negative); PH, Urine 6.5 (5.0-8.0); Protein,Urine 2+ (Negative); RBC,Urine >182 /hpf (0-5); Urobilinogen,Urine <2.0 mg/dL (<2.0); WBC,Urine 5 /hpf (0-5)
[2023-11-21 13:00] LABS: Specific Gravity,Urine 1.015 (1.001-1.035)
--- NOTE | 2023-11-22 08:09 | P.PN ---
Subjective Progress Note Date: 11/22/23 The patient was admitted for a left pcnl He underwent this without difficuty on 11/20/23. He did well and was to be discharged but his blood pressure was low so I kept him in the hospital. His hgb was ok but his wbc were elevated consistent with an infected stone. He was started on levaquin and given some ivf. He has responded nicely. He feels much better today. His vss are stable Objective - Vital Signs Vital signs: Vital Signs Temp 98.3 F 11/22/23 02:00 Pulse 80 11/22/23 02:00 Resp 16 11/22/23 02:00 BP 118/69 11/22/23 02:00 Pulse Ox 94 L 11/22/23 02:00 FiO2 Intake & Output 11/21/23 11/21/23 11/22/23 06:59 18:59 06:59 Intake Total 590 590 Output Total 382 246 3493 Balance 40 -300 -610 Intake: Oral 590 590 Output: Drainage 250 250 800 Left Lower Back 250 250 800 Urine 300 50 400 Uretheral ([place]) 50 Other: Voiding Method Indwelling Catheter Indwelling Catheter Urinal Ileal Conduit (Left) # Voids 3 # Bowel Movements 1 - Labs CBC & Chem 7: 11/21/23 11:14 Labs: Abnormal Lab Results - Last 24 Hours (Table) 11/21/23 11/21/23 Range/Units 11:14 12:29 WBC 22.9 H (3.8-10.6) k/uL RBC 3.96 L (4.30-5.90) m/uL Hgb 11.9 L (13.0-17.5) gm/dL Hct 36.7 L (39.0-53.0) % Neutrophils # 19.6 H (1.3-7.7) k/uL Monocytes # 1.3 H (0-1.0) k/uL Urine Protein 2+ H (Negative) Urine Blood Large H (Negative) Ur Leukocyte Esterase Large H (Negative) Urine RBC >182 H (0-5) /hpf Urine Bacteria Few H (None) /hpf Urine Mucus Few H (None) /hpf Assessment and Plan Assessment: Impression: THe patient underwent a pcnl lt to what appears to be an infected stone. His d/c was cancelled yesterday due to a lower bp probably from the infection. He was started on levaquin and given a fluid bolus. He has responded nicely. He wants to go home He will be d/cd home on levaquin and fu in the office saturday.
[2023-11-22 08:18] VITALS: PULSE 76; TEMP 98.4
[2023-11-22 09:21] VITALS: BP 122/70; RESP 16
== END 2023-11-22 12:04 | disposition home or self-care (01) ==
LOC: OR 06:32 → 5NMEDONC 10:16 → OR 11-22 12:04
PROVIDERS: ATTEND Urology
DX: N20.0 Calculus of kidney (principal); I10 Essential (primary) hypertension; Z85.828 Personal history of other malignant neoplasm of skin; Z87.891 Personal history of nicotine dependence
CPT/HCPCS: 86900; 86901; 85025; 86850; 81001; 82365; 50432; 74018; 50080; 50436; 52005; C1769 ×4; C2628; C1894; C1729; J2250; J0330; J2710; J0690; J2405; J1956; J2001; J3010; J1170; J1885; J2704; Q9967; J2371; J1596

== ENCOUNTER → 2024-04-03 | Outpatient (CLI) | payer MEDICARE ==
--- NOTE | 2024-04-03 09:38 | BD ---
EXAMINATION TYPE: Axial Bone Density DATE OF EXAM: 04/03/2024 CLINICAL HISTORY: 78 years old Male. ICD-10 CODE: M85.80 OSTEOPENIA , Additional History: Height: 66 Weight: 163.1 FRAX RISK QUESTIONS: Alcohol (3 or more units per day): no Family History (Parent hip fracture): mother Glucocorticoids (More than 3mos): no (Ex: prednisone, prednisolone, methylprednisolone, dexamethasone, and hydrocortisone). History of Fracture in Adulthood: yes Secondary Osteoporosis: 1. Type 1 Diabetes: no 2. Hyperthyroidism: no 3. Menopause before 45: na 4. Malnutrition: no 5. Chronic liver disease: no Rheumatoid Arthritis: no Current Tobacco Use: no RISK FACTORS HISTORY OF: Hip Fracture (Right/Left): no Spine Fracture: L1 History of Wrist Fracture: RT Wrist Surgery to Spine/Hip(right/left)/Wrist (right/left): no MEDICATIONS: Thyroid Medications: no Osteoporosis Medications: no EXAM MEASUREMENTS: Bone mineral density about the R hip (g/cm2): 0.804 Bone mineral density about the L hip (g/cm2): 0.783 T Score values are as follows: -----R Neck: -1.9 -----L Neck: -2.0 -----R Total: -1.6 -----L Total: -1.8 Z Score values are as follows: -----R Neck: -0.6 -----L Neck: -0.7 -----R Total: -0.9 -----L Total: -1.0 Bone mineral density has: DECREASED -3.3 % since study of: 05/13/2017 Bone mineral density about the L Wrist (g/cm2): 0.636 T Score values are as follows: -----Dist. R+U: -1.8 -----Prox. R+U: -1.5 -----Radius total: -1.7 Z Score values are as follows: -----Dist. R+U: -0.6 -----Prox. R+U: -0.3 -----Radius total: -0.5 Baseline Study FRAX%s: The graph provided illustrates a 29.7% chance for a major osteoporotic fx and a 21.9% chance for the hips probability for fx in 10 years time. IMPRESSION: Osteopenia (T Score between -2.5 and -1). There is slightly increased risk of fracture and the patient may be considered for treatment. Re-Screen 2-5 years. NOTE: T-SCORE=SD OF THE YOUNG ADULT MEAN. [facility], , 04/03/2024 9:36 AM
== END | disposition home or self-care (01) ==
LOC: RADBDWWP 07:09
PROVIDERS: ATTEND Internal Medicine
DX: M85.89 Other specified disorders of bone density and structure, multiple sites (principal)
CPT/HCPCS: 77080

== ENCOUNTER 2024-04-21 09:51 | Emergency (ER) | payer MEDICARE ==
[2024-04-21 10:13] VITALS: PULSE 81; RESP 18; TEMP 98.2
--- NOTE | 2024-04-21 10:23 | ED ---
Upper Extremity HPI - General Chief Complaint: Extremity Injury, Upper Stated Complaint: Fall/R shoulder pain Time Seen by Provider: 04/21/24 10:14 Source: patient, RN notes reviewed Mode of arrival: ambulatory Limitations: no limitations - History of Present Illness Initial Comments: This is a 78-year-old male who presents to the emergency department for a fall. Patient slipped and fell this morning when taking out the trash. States that he landed on his right arm. He has since had pain to the right shoulder and is having difficulty lifting the arm. Denies hitting his head or any loss of consciousness. Not taking any blood thinners. Denies any pain elsewhere. MD Complaint: Injury to:: right, shoulder - Related Data Home Medications Medication Instructions Recorded Confirmed Latanoprost Ophth [Xalatan 0.005%] 1 drops BOTH EYES HS 09/10/11/20/23 Brimonidine Tartrate [Lumify] 1 drop BOTH EYES BID 12/19/21 11/20/23 Cholecalciferol [Vitamin D3 (25 1 tab PO DAILY 12/19/21 11/20/23 Mcg = 1000 Iu)] Dorzolamide HCl/Pf [Dorzolamide 2% 1 drop BOTH EYES BID 12/19/21 11/20/23 Eye Drop] [place]-3/Dha/Epa/Fish Oil [Fish Oil 1 cap PO DAILY 12/19/21 11/20/23 1,000 mg Softgel] Previous Rx's Medication Instructions Recorded Naproxen Sodium 550 mg PO BID PRN #30 tablet 04/21/24 traMADol HCL 50 mg PO Q6H PRN 3 Days #12 tab 04/21/24 Allergies Allergy/AdvReac Type Severity Reaction Status Date / Time STEROIDS AdvReac Unknown. Uncoded 11/20/23 07:35 LIMIT USE, PATIENT HAS GLAUCOMA Review of Systems ROS Statement: Those systems with pertinent positive or pertinent negative responses have been documented in the HPI. ROS Other: All systems not noted in ROS Statement are negative. Past Medical History Past Medical History: Hypertension Additional Past Medical History / Comment(s): glaucoma, cold sores History of Any Multi-Drug Resistant Organisms: None Reported Past Surgical History: Orthopedic Surgery Additional Past Surgical History / Comment(s): sinus polyp removed Past Anesthesia/Blood Transfusion Reactions: No Reported Reaction Past Psychological History: No Psychological Hx Reported Smoking Status: Former smoker - Past Family History Mother Family Medical History: No Reported History General Exam Limitations: no limitations General appearance: alert, in no apparent distress Head exam: Present: atraumatic, normocephalic, normal inspection Respiratory exam: Present: normal lung sounds bilaterally. Absent: respiratory distress, wheezes, rales, rhonchi, stridor Cardiovascular Exam: Present: regular rate, normal rhythm, normal heart sounds. Absent: systolic murmur, diastolic murmur, rubs, gallop, clicks Extremities exam: Present: other (Tenderness to palpation over the right shoulder. Range of motion limited by pain. 2+ radial pulses) Neurological exam: Present: alert, oriented X3, CN II-XII intact Psychiatric exam: Present: normal affect, normal mood Skin exam: Present: warm, dry, intact, normal color. Absent: rash Course Vital Signs 04/21/24 04/21/24 10:07 13:23 Temperature 98.2 F Pulse Rate 81 81 Respiratory 18 18 Rate Blood Pressure 154/88 139/75 O2 Sat by Pulse 98 97 Oximetry Medical Decision Making - Medical Decision Making This is a 78 year old male who presents to the emergency department for right shoulder pain. Was pt. sent in by a medical professional or institution? @ -No Did you speak to anyone other than the patient for history? @ -No Did you review nursing and triage notes? @ -Yes, and I agree, it is accurate with regards to the patient's symptoms. Were old charts reviewed? @ -No Differential Diagnosis? @ -Differential Musculoskeletal Muscular strain, contusion, ligament sprain, fracture, arthritis, septic arthritis, bursitis, cellulitis, muscle spasm, nerve compression, DVT, arterial occlusion, herpes zoster, electrolyte abnormality, tumor.... This is not meant to be in all inclusive list EKG interpreted by me (3pts min.)? @ -Not obtained X-rays interpreted by me (1pt min.)? @ -X-ray of the right shoulder obtained. My interpretation identifies a proximal humerus fracture. CT interpreted by me (1pt min.)? @ -Not obtained U/S interpreted by me (1pt. min.)? @ -Not obtained What testing was considered but not performed? (CT, X-rays, U/S, labs)? Why? @ -None What meds were considered but not given? Why? @ -None Did you discuss the management of the patient with other professionals? @ -Yes, Dr. Abraham, orthopedics. He advised putting the patient's arm in a sling and following up in the office. Did you reconcile home meds? @ -No Was smoking cessation discussed for >3mins.? @ -No Was critical care preformed (if so, how long)? @ -No Were there social determinants of health that impacted care today? How? (Homelessness, low income, unemployed, alcoholism, drug addiction, transportation, low edu. Level, literacy, decrease access to med. care, shelter, rehab)? @ -No Was there de-escalation of care discussed even if they declined? (Discuss DNR or withdrawal of care, Hospice)? @ -No What co-morbidities impacted this encounter? (DM, HTN, Smoking, COPD, CAD, Cancer, CVA, Hep., AIDS, mental health diagnosis, sleep apnea, morbid obesity)? @ -None Was patient admitted / discharged? @ -Discharged. X-ray of the right shoulder obtained demonstrating a comminuted displaced proximal humeral fracture. They cannot exclude a fracture of the glenoid. Case discussed with orthopedics. They advised that given his age they will probably avoid surgical intervention. They advised putting the patient's arm in a sling and allowing gravity to help correct the displacement. This was reviewed with the patient. He was put in a sling prior to discharge. Prescription for naproxen and tramadol provided. Information for orthopedic follow-up provided as well. He is advised to contact them for follow-up appointment. Patient discharged home in stable condition. Case discussed with ED attending Dr. Dennis. Return precautions reviewed in depth, the patient is instructed to return to the emergency department with any new, worsening, or concerning symptoms. Patient verbalized understanding. Undiagnosed new problem with uncertain prognosis? @ -None Drug Therapy requiring intensive monitoring for toxicity (Heparin, Nitro, Insulin, Cardizem)? @ -None Were any procedures done? @ -None Diagnosis/symptom? @ -Fall, right proximal humerus fracture Acute, or Chronic, or Acute on Chronic? @ -Acute Uncomplicated (without systemic symptoms) or Complicated (systemic symptoms)? @ -Uncomplicated Side effects of treatment? @ -None Exacerbation, Progression, or Severe Exacerbation] @ -Not applicable Poses a threat to life or bodily function? @ -Yes, will limit his use of the right arm for the meantime. - Radiology Data Radiology results: report reviewed, image reviewed Disposition Clinical Impression: Right humeral fracture, Fall Disposition: HOME SELF-CARE Instructions (If sedation given, give patient instructions): How to Use a Sling (ED), Proximal Humerus Fracture (ED) Additional Instructions: Return to the emergency department with any new, worsening, or concerning symptoms. Take the naproxen twice daily for pain relief. You may take this with Tylenol. Take the tramadol when your pain is the most severe. If you find that you need this, but it makes you constipated, you can take something like [id number] MiraLAX. Contact orthopedics listed below on the . Let them know that you were seen in the emergency department for a humerus fracture and they will schedule you for a follow-up appointment. Prescriptions: Naproxen Sodium 550 mg PO BID PRN #30 tablet PRN Reason: Pain traMADol HCL 50 mg PO Q6H PRN 3 Days #12 tab PRN Reason: Pain Is patient prescribed a controlled substance at d/c from ED?: Yes When asked, does pt state using other controlled substances?: No If prescribed controlled substance>3 days was MAPS reviewed?: Prescribed <3 Days Referrals: Luiz Hill DO [Primary Care Provider] - 1-2 days Sagar Abraham MD [STAFF PHYSICIAN] - 1-2 days Time of Disposition: 12:55
--- NOTE | 2024-04-21 11:26 | XR ---
EXAMINATION TYPE: XR shoulder complete RT DATE OF EXAM: 04/21/2024 COMPARISON: NONE CLINICAL INDICATION: Male, 78 years old with history of Fall; TECHNIQUE: Three views are submitted. FINDINGS: Comminuted displaced fracture involving the neck of the humerus extending to the tuberosity. Cannot e xclude a scapular fracture. Visualized lung chopra are clear. Arthropathy of the AC joint. Generalize d demineralization. IMPRESSION: 1. Comminuted displaced proximal humeral fracture. Cannot exclude a fracture of the glenoid. [facility], , 04/21/2024 11:24 AM
[2024-04-21 13:25] VITALS: BP 139/75
== END 2024-04-21 13:25 | disposition home or self-care (01) ==
LOC: EC 09:51
DX: S42.201A Unspecified fracture of upper end of right humerus, initial encounter for closed fracture (principal); Z88.8 Allergy status to other drugs, medicaments and biological substances; Z87.891 Personal history of nicotine dependence; W01.0XXA Fall on same level from slipping, tripping and stumbling without subsequent striking against object, initial encounter
CPT/HCPCS: 99283

== ENCOUNTER → 2024-05-07 | Outpatient (CLI) | payer MEDICARE ==
--- NOTE | 2024-05-07 17:41 | CT ---
EXAMINATION TYPE: CT upper extremity RT wo con DATE OF EXAM: 05/07/2024 5:18 PM COMPARISON: . Extremity radiograph 04/21/2024 CLINICAL INDICATION: Male, 78 years old with history of S42.241A 4-PART FRACTURE OF SURGICAL NECK OF RIGHT; PH[facility], 4 part fx of surgical neck of rt humerus. TECHNIQUE: Axial images were obtained of the CT upper extremity RT wo con, Additional coronal and sag ittal reformatted images and soft tissue and bone window were obtained for review. 3-D reconstruction was created on a separate workstation. Contrast used: mL of , (None if empty) Oral contrast used: (None if empty) CT DLP: 475 mGycm, Automated exposure control for dose reduction was used. FINDINGS: Comminuted proximal right humerus fracture with intra-articular extension. There is displac ement of the fragments. Superimposed moderate degeneration changes with joint space and osteophyte fo rmation noted. Deformity to the glenoid suggesting severe degeneration changes or posttraumatic driscoll e. Remainder of the osseous structures appear intact. Feces osseous demineralization of the spine.. T he visualized chest demonstrates atherosclerosis of the aorta. Compression deformities of T3 with 50% height loss and T4 with 25% height loss. Remote injury to the sternum. IMPRESSION: 1. Comminuted proximal right humerus fracture with displacement and intra-articular extension. 2. Deformity to the glenoid with superimposed moderate degeneration changes of the right shoulder. 3. Compression deformity of T3 with 50% height loss and compression deformity of T4 with 25% height loss. 4. Diffuse osseous demineralization. 5. Remote injury to the sternum. [facility], , 05/07/2024 5:38 PM
== END | disposition home or self-care (01) ==
LOC: RADCTMAIN 16:31
PROVIDERS: ATTEND Orthopaedic Surgery
DX: S42.241A 4-part fracture of surgical neck of right humerus, initial encounter for closed fracture (principal); M48.54XA Collapsed vertebra, not elsewhere classified, thoracic region, initial encounter for fracture; X58.XXXA Exposure to other specified factors, initial encounter